=== PATIENT | female | born 1950 | race Caucasian/White ===

== ENCOUNTER → 2016-12-20 | Outpatient (CLI) | payer MEDICARE ==
[~2016-12-20] MED LIST: ASPI-587 PO; ATOR40TA PO; CHOL100011 PO; MULT-974 PO; NFNEB10T PO; OM-31CAP9 PO; RLX60T PO
--- NOTE | 2016-12-20 09:56 | Diagnostic Imaging Report ---
PROCEDURE: CT abdomen and pelvis without contrast. TECHNIQUE: Multiple contiguous axial images were obtained through the abdomen and pelvis without the use of intravenous contrast. INDICATION: Left flank pain. Hematuria. COMPARISON: None FINDINGS: Included portions of lung bases show some mild dependent atelectasis and/or scarring. CT abdomen: Ureters cannot be followed in their entirety. There is no hydroureteronephrosis, but there is suggestion of calculi within the distal left ureter (image 71, series 2). Potential calculi measure approximately 4 mm in diameter. Additional nonobstructive renal calculi are also seen on the left. No renal or ureter calculi are seen on the right. Additionally, there is no hydroureteronephrosis or other evidence of obstruction on the right. No focal renal mass type lesions are identified on this noncontrast exam. The spleen, pancreas, adrenal glands, and kidneys have an unremarkable noncontrast CT appearance. There is no loculated fluid collection, free fluid, nor free air within the abdomen. No abnormal mesenteric or retroperitoneal adenopathy is seen. Bony structures show no gross acute abnormalities. Small bowel loops are nondistended. Appendix measures above the upper limits of normal for diameter at 8 mm, but there is no periappendiceal or pericecal inflammatory change. There is colonic diverticulosis, but no CT evidence of acute diverticulitis. CT pelvis: Urinary bladder is unopacified. No calculi are seen within urinary bladder. Again, there are calculi in the expected location of the distal left ureter. Multiple pelvic phleboliths are also noted. There is no prior available for comparison. There is no loculated fluid collection, free fluid, nor free air within the pelvis. No abnormal lymph nodes are seen. Bony structures show no acute abnormalities. IMPRESSION: 1. Findings suspicious for nonobstructive distal left ureteral calculus as described above. 2. Additional nonobstructive left renal calculi. 3. Slight prominent appearance to the appendix, but no CT evidence of acute appendicitis. 4. Colonic diverticulosis, but no CT evidence of acute diverticulitis. Dictated by: Dictated on workstation # [id number]
== END ==
LOC: RAD 09:09
PROVIDERS: ATTEND Nurse Practitioner Family
DX: N20.0 Calculus of kidney (principal); N28.9 Disorder of kidney and ureter, unspecified; K57.30 Diverticulosis of large intestine without perforation or abscess without bleeding
CPT/HCPCS: 74176

== ENCOUNTER → 2017-03-22 | Outpatient (CLI) | payer MEDICARE ==
--- NOTE | 2017-03-22 16:03 | Diagnostic Imaging Report ---
Three views of the right foot. INDICATION: Pain along the dorsal aspect of the foot at the MTP joint level. FINDINGS: No fracture, dislocation or radiopaque foreign body is seen. Slightly prominent calcaneal spur is seen. There is suggestion of a well-corticated tiny bony fragment projecting dorsal to the metatarsal heads level on the lateral view, not identified on the other views. This could relate to old injury or accessory ossicle, of questionable significance. No significant arthritic changes. IMPRESSION: No acute process. Dictated by: Dictated on workstation # [id number]
== END ==
LOC: RAD 09:25
PROVIDERS: ATTEND Family Medicine
DX: M25.571 Pain in right ankle and joints of right foot (principal)
CPT/HCPCS: 73630

== ENCOUNTER 2020-12-03 09:15 | Outpatient (RCR) | payer MEDICARE | END 2020-12-09 13:45 | disposition home or self-care (01) | PROVIDERS: ATTEND Orthopaedic Surgery | DX: M75.01 Adhesive capsulitis of right shoulder (principal); I11.9 Hypertensive heart disease without heart failure ==

== ENCOUNTER 2021-08-07 11:10 | Outpatient (RCR) | payer MEDICARE | END 2021-08-08 | disposition home or self-care (01) | LOC: CR 11:10 | PROVIDERS: ATTEND Thoracic Surgery (Cardiothoracic Vascular Surgery) | DX: Z29.8 Encounter for other specified prophylactic measures (principal); I34.0 Nonrheumatic mitral (valve) insufficiency | CPT/HCPCS: 93798 ==

== ENCOUNTER 2021-09-04 11:28 | Outpatient (RCR) | payer MEDICARE | END 2021-09-08 | disposition home or self-care (01) | LOC: CR 11:28 | PROVIDERS: ATTEND Thoracic Surgery (Cardiothoracic Vascular Surgery) | DX: Z29.8 Encounter for other specified prophylactic measures (principal); I34.0 Nonrheumatic mitral (valve) insufficiency | CPT/HCPCS: 93798 ==

== ENCOUNTER 2021-10-07 14:52 | Outpatient (RCR) | payer MEDICARE | END 2021-10-08 | disposition home or self-care (01) | LOC: CR 14:52 | PROVIDERS: ATTEND Thoracic Surgery (Cardiothoracic Vascular Surgery) | DX: Z29.8 Encounter for other specified prophylactic measures (principal); I34.0 Nonrheumatic mitral (valve) insufficiency | CPT/HCPCS: 93798 ==

== ENCOUNTER 2021-10-30 14:02 | Outpatient (RCR) | payer MEDICARE | END 2021-11-08 | disposition home or self-care (01) | LOC: CR 14:02 | PROVIDERS: ATTEND Thoracic Surgery (Cardiothoracic Vascular Surgery) | DX: Z29.8 Encounter for other specified prophylactic measures (principal); I34.0 Nonrheumatic mitral (valve) insufficiency | CPT/HCPCS: 93798 ==

== ENCOUNTER → 2021-12-15 | Outpatient (CLI) | payer MEDICARE ==
--- NOTE | 2021-12-17 16:37 | Holter Monitor ---
HOLTER MONITOR DATE OF PROCEDURE: 12/15/2021. INDICATION: Paroxysmal atrial fibrillation. PROCEDURE: A 24-hour Holter monitor was obtained for a total of 24 hours. The study quality is adequate. RESULTS: 1. Baseline sinus rhythm with an average heart rate of 61 bpm, ranging from 47- 85 bpm. 2. There were rare (118), isolated premature supraventricular complexes and 6 supraventricular couplets. 3. Occasional (206), isolated premature ventricular complexes and 5 ventricular couplets. 4. There was no evidence of atrial fibrillation. 5. There were no pauses exceeding 2 seconds in duration. 6. No cardiac symptoms were recorded in the patient diary. IMPRESSION: 1. This is a 24-hour Holter monitor report. 2. Baseline sinus rhythm with an average heart rate of 61 bpm, ranging from 47- 85 bpm with rare supraventricular ectopy as isolated and couplet beats and occasional ventricular ectopy as isolated and couplet beats. 3. There was no evidence of atrial fibrillation. 4. No cardiac symptoms were recorded in the patient diary. Certain portions of this document may have been dictated utilizing voice recognition technology. Inherent to this technology, typographical and grammatical errors may exist. As much as I am diligent to identify and correct these mistakes, some errors may remain in the document. THAI ADAMS JR, MD Dec 17, 2021 16:37
== END ==
LOC: CARD 09:52
PROVIDERS: ATTEND Internal Medicine Interventional Cardiology
DX: I48.0 Paroxysmal atrial fibrillation (principal)
CPT/HCPCS: 93225; 93226